=== PATIENT | male | born 2000 | race Caucasian/White ===

== ENCOUNTER 2025-08-05 15:56 | Emergency (ER) | payer BC, SELFPAY ==
[2025-08-05 16:00] VITALS: BP 148/96; PULSE 128; RESP 16; RESP 18; TEMP 37.6; O2SAT 98
--- NOTE | 2025-08-05 16:03 | ECG_ITS ---
[facility] Test Date: 2025-08-05 Pat Name: Joseph Azul Department: Room: Gender: Male [employer] Work[employer]: : 2000 Requested By: Jeanna Mcfarland Order Number: [id number] Amilcar MD: ADRIEL VALENTINO Measurements Intervals [place] Rate: 120 P: 83 [place]: 124 QRS: 92 QRSD: 96 T: 44 QT: 293 QTc: 415 Interpretive Statements SINUS TACHYCARDIA BORDERLINE RIGHT AXIS DEVIATION [QRS AXIS > 90] NONSPECIFIC T-WAVE ABNORMALITY ABNORMAL RHYTHM ECG No previous ECG available for comparison Electronically Signed On 08-07-2025 21:36:26 CDT by ADRIEL VALENTINO [id number]
--- NOTE | 2025-08-05 16:09 | W.ED.DENTAL ---
HPI - Dental/Oral General: Chief complaint: Dental/Oral Stated complaint: dental pain top rt Time Seen by Provider: 08/05/25 16:09 History of Present Illness: 25-year-old man who presents to the emergency room with dental pain. He had a root canal on the upper right molar 3 years ago. He says over the last 2 weeks he has developed worsening pain and swelling. He is little tachycardic here but he says he is always a little bit tachycardic and he is in some pain. He does have some swelling of the right cheek area. Related Data Previous Rx's ?Medication ?Instructions ?Recorded clindamycin HCl 300 mg capsule 600 mg (2 x 300 mg) PO Q6H 10 days 08/05/25 #80 caps diclofenac sodium 50 mg 50 mg PO BID PRN pain #14 tabs 08/05/25 tablet,delayed release hydrocodone 5 mg-acetaminophen 325 1 tab PO Q6H PRN pain #20 tabs 08/05/25 mg tablet Allergies Allergy/AdvReac Type Severity Reaction Status Date / Time No Known Allergies Allergy Verified 08/05/25 16:07 Review of Systems Narrative: Constitutional symptoms: Negative except as documented in HPI. Skin symptoms: Negative except as documented in HPI. Eye symptoms: Negative except as documented in HPI. ENMT symptoms: Negative except as documented in HPI. Respiratory symptoms: Negative except as documented in HPI. Cardiovascular symptoms: Negative except as documented in HPI. Gastrointestinal symptoms: Negative except as documented in HPI. Genitourinary symptoms: Negative except as documented in HPI. Musculoskeletal symptoms: Negative except as documented in HPI. Neurologic symptoms: Negative except as documented in HPI. Psychiatric symptoms: Negative except as documented in HPI. Endocrine symptoms: Negative except as documented in HPI. Physical Exam Narrative: EXAM NARRATIVE: General: Alert, no acute distress. Skin: warm and dry Head: Normocephalic Neck: Trachea midline Eye: Extraocular movements are intact. Ears, nose, mouth and throat: Oral mucosa moist. Some swelling and tenderness over the right face. Does appear to have a dental abscess. Respiratory: Respirations are non-labored Musculoskeletal: Normal ROM Gastrointestinal: Abdomen does not appear distended Neurological: Alert and oriented, No focal neurological deficit observed. Psychiatric: Cooperative, appropriate mood & affect. Course Vital Signs: Vital signs: Vital Signs Temperature 99.6 F 08/05/25 16:00 Pulse Rate 128 H 09/25/25 16:00 Respiratory Rate 18 08/05/25 16:00 Blood Pressure 148/96 08/05/25 16:00 Pulse Oximetry 98 08/05/25 16:00 Oxygen Delivery Me thod Room Air 08/05/25 16:00 MDM - Dental/Oral Medical Decision Making Medical decision making: Differential diagnosis including but not limited to and based on the above HPI, review of systems and physical exam: Patient does have some fairly significant swelling on his right face. We will try him on antibiotics. I discussed he needs to go see a dentist to soon as possible. Giving him his first dose of IM antibiotics here Assessment and plan: Dental abscess ?IM clindamycin here in the emergency room. - Discharged home - Discussed plan with patient. Answered any questions. - Evaluation and treatment of this problem were appropriate in the emergency setting. No radiology studies performed this visit Discharge Plan Discharge Patient Disposition: Home Clinical Impression: Dental abscess Condition: Stable Prescriptions: New clindamycin HCl 300 mg capsule 600 mg PO Q6H 10 Days Qty: 80 0RF hydrocodone-acetaminophen 5-325 mg tablet 1 tab PO Q6H PRN (Reason: pain) Qty: 20 0RF diclofenac sodium 50 mg tablet,delayed release (DR/EC) 50 mg PO BID PRN (Reason: pain) Qty: 14 0RF Discharge Orders: Discharge ED (Routine); Ordered 08/05/25 Ordered By: Jeanna Morgan Discharge Diet: Usual diet Discharge Activity: Increase activity as tolerated Patient Instructions: Dental Abscess (ED), Opioid Safety, Pain Management, Patient Portal & Elaina Instructions Activity Restrictions/Additional Instructions: Please follow-up with a dentist as soon as possible. Thank you for choosing [facility] for your healthcare needs today. You have been screened and evaluated and felt safe for discharge. Health conditions do change or evolve sometimes and as such it is important that you follow up with your Primary Doctor to be re checked, 3-5 days is a general good time frame for follow up. You are always welcome to return to the ED for re assessment if your symptoms are worsening or you have new concerns Print Language: Maltese Coding Level of Care Code ED Oracle Manager for Donnie Lowe
[2025-08-05] MEDS: Clindamycin 150 MG/ML SDV 2mL 900 MG IM (17:01)
== END 2025-08-05 17:02 | disposition home or self-care (01) ==
PROVIDERS: Emergency Provider Emergency Medicine
DX: K04.7 Periapical abscess without sinus (principal)
CPT/HCPCS: 93005; 96372; 99284; J0736

== ENCOUNTER 2025-08-06 23:48 | Emergency (ER) | payer BC, SELFPAY ==
[2025-08-07 00:04] VITALS: BP 133/93; PULSE 108; RESP 18; TEMP 37.1; O2SAT 99; BMI 22.9
--- NOTE | 2025-08-07 00:18 | ED_ITS ---
HPI - Dental/Oral 2 General: Chief complaint: Dental/Oral Stated complaint: dental absess wants drained please Time Seen by Provider: 08/06/25 23:51 History of Present Illness: Patient is a 25-year-old gentleman that was here on 08/05 for dental pain and right upper gums. Patient has a dental appointment on Saturday. He states the pain has gotten worse and almost unbearable despite taking medication. He was placed on clindamycin 600 mg every 6 hours. He has been taking this as prescribed, and diclofenac, as well as hydrocodone. He feels like there is a snake in her his upper right portion that is very painful. He does have ongoing swelling in his right jaw. Associated symptoms: Denies fever(s) Related Data Previous Rx's ?Medication ?Instructions ?Recorded clindamycin HCl 300 mg capsule 600 mg (2 x 300 mg) PO Q6H 10 days 08/05/25 #80 caps diclofenac sodium 50 mg 50 mg PO BID PRN pain #14 ta bs 08/05/25 tablet,delayed release hydrocodone 5 mg-acetaminophen 325 1 tab PO Q6H PRN pa in #20 tabs 08/05/25 mg tablet Allergies Allergy/AdvReac Type Severity Reaction Status Date / Time No Known Allergies Allergy Verified 08/05/25 16:07 Review of Systems 2 General: Reports: 10 or more systems reviewed and unremarkable except in HPI and below Const: Reports: change in sleep pattern (c/n sleep due to dental pain); Denies: fever(s) or chills Eyes: Denies: change in vision or eye discharge ENMT: Reports: dental pain; Denies: dry mouth Resp: Denies: dyspnea or non-productive cough GI: Denies: abdominal pain, nausea or vomiting : Denies: flank pain or difficulty urinating Musc: Denies: neck pain, back pain or extremity pain Skin/Breast: Denies: rash or pruritus Psych: Denies: anxiety or depression Too/Lymph: Denies: easy bruising or easy bleeding Physical Exam 2 Const: COMMON NORMALS: no acute distress, average body habitus, patient oriented x3 and no limitations GENERAL APPEARANCE: cooperative and in distress HENMT: COMMON NORMALS: normocephalic, atraumatic and hearing grossly normal bilaterally HEAD & SCALP: normocephalic and atraumatic TEETH & GINGIVA IMAGES: 1. Hard, white, indurated area 2. [address] this location Neck/C-Spine: COMMON NORMALS: full ROM, no lymphadenopathy, supple and Thyroid normal GENERAL: Yes normal visual inspection and Yes trachea midline T HYROID: Thyroid normal Chest: COMMONS NORMALS: normal inspection of the chest and normal palpation of entire chest wall Resp: COMMON NORMALS: normal respiratory effort, No retractions and No use of accessory muscles GI: COMMON NORMALS: Normal to inspection, nondistended, normoactive bowel sounds present and Soft to palpation PALPATION: Yes Soft to palpation : COMMON NORMALS: Yes no CVA tenderness BLADDER/KIDNEY EXAM: Yes no CVA tenderness Back/Pelvis: COMMON NORMALS: no CVA tenderness Extremity: COMMON NORMALS: normal to inspection, full ROM and capillary refill normal Neuro: COMMON NORMALS: patient oriented x3 Psych: COMMON NORMALS: mental status grossly normal, Normal thought process present, cooperative, normal affect and speech normal SPEECH: Yes normal speech THOUGHT PROCESS: Normal thought process present Skin: COMMON NORMALS: no rashes or lesions noted, no wounds and turgor normal GENERAL SKIN EXAM: no rashes or lesions noted and turgor normal Procedures Abscess I/D Site: other (dental) Side (if applicable): right (upper) Technique: needle aspiration (18 gauge) Amount of fluid expressed (mL): 20 Irrigation: No Packing used?: none Complications: pain, bleeding and other (Patient expressed improvement) Course 2 Vital Signs: Vital signs: Vital Signs Temperature 98.8 F 08/07/25 00:04 Pulse Rate 108 H 08/07/25 00:04 Respiratory Rate 18 08/07/25 00:04 Blood Pressure 133/93 08/07/25 00:04 Pulse Oximetry 99 08/07/25 00:04 [facility] - Dental/Oral Medical Decision Making Patient is a 25-year-old gentleman that returns to the ED with right upper dental pain to the front just above his canine and first molar. He has a fullness to that area. 18-gauge was placed in here, and copious amount of milky white was expressed by pushing on the outside the jaw. He had localized swelling to the jaw however he did not have trismus. Patient states he feels better after this. He will continue his clindamycin 600 mg 3 times daily, and has dental appointment on Saturday. Asked patient about Toradol regarding pain control, and he concurs this would be a good for him to do. Medical Records I reviewed the patient's medical records. No radiology studies performed this visit Discharge Plan Discharge Patient Disposition: Home Clinical Impression: Dental abscess Condition: Stable Prescriptions: No Action clindamycin HCl 300 mg capsule 600 mg PO Q6H 10 Days Qty: 80 0RF hydrocodone-acetaminophen 5-325 mg tablet 1 tab PO Q6H PRN (Reason: pain) Qty: 20 0RF diclofenac sodium 50 mg tablet,delayed release (DR/EC) 50 mg PO BID PRN (Reason: pain) Qty: 14 0RF Discharge Orders: Discharge ED (Routine); Ordered 08/07/25 Ordered By: Debby Joseph Discharge Diet: Soft Mechanical Discharge Activity: Resume usual activity Patient Instructions: Dental Abscess (ED), Patient Portal & Elaina Instructions Activity Restrictions/Additional Instructions: - Soft diet - Warm, not hot salt water rinses will help since that area has been opened and is draining - Continue your medication/clindamycin/your antibiotic as directed - Coolness to this area such as a bag of peas with a barrier between that and your face will help with the swelling to your right jaw. - Return to ED if you are unable to open your mouth, you have worsening pain or swelling on this eye or mouth, or 100.4 ?F. - Continue with your dental appointment on Saturday as planned. I am also glad that you felt some better by draining your abscess today Print Language: Georgian Coding Level of Care Code ED [employer] Mechanic for Donnie Lowe
== END 2025-08-07 01:05 | disposition home or self-care (01) ==
PROVIDERS: Emergency Provider Physician Assistant
DX: K04.7 Periapical abscess without sinus (principal)
CPT/HCPCS: 41800; 96372; 99284; J1885